=== PATIENT | male | born 1965 | race Caucasian/White ===

== ENCOUNTER 2019-04-26 08:18 | Day surgery (SDC) | payer BC ==
[2019-04-26] MEDS: SOD CHLORIDE 0.9% 1,000 ML IV (09:04)
[2019-04-26 09:05] LABS: ADD MAN DIFF? NO
[2019-04-26 09:11] LABS: BASOPHIL # 0.1 10^3/ul (0.0-0.1); BASOPHILS % 1.7 % (0.0-2.0); EOSINOPHILS # 0.2 10^3/ul (0.0-0.5); EOSINOPHILS % 3.8 % (0.0-7.0); HEMATOCRIT 43.3 % (42.0-52.0); HEMOGLOBIN 14.6 g/dl (14.0-18.0); LYMPHOCYTES # 1.2 10^3/ul (0.8-2.9); LYMPHOCYTES % 28.1 % (15.0-51.0); MEAN CORPUSCULAR HEMOGLOBIN 29.9 pg (29.0-33.0); MEAN CORPUSCULAR HGB CONC 33.7 g/dl (32.0-37.0); MEAN CORPUSCULAR VOLUME 88.5 fl (82.0-101.0); MEAN PLATELET VOLUME 8.8 fl (7.4-10.4); MONOCYTE # 0.4 10^3/ul (0.3-0.9); NEUTROPHIL # 2.4 10^3/ul (1.6-7.5); NEUTROPHILS % 56.2 % (39.0-77.0); PLATELET COUNT 257 10^3/UL (140-415); RED BLOOD COUNT 4.89 10^6/ul (4.70-6.10)
[2019-04-26 09:11] LABS: WHITE BLOOD COUNT 4.2 10^3/ul (4.8-10.8)
[2019-04-26 09:23] LABS: HOLD TRANSMISSIONS 1
[2019-04-26 09:29] LABS: INR 0.88; PT RATIO 0.9
[2019-04-26 09:46] LABS: ALANINE AMINOTRANSFERASE 40 IU/L (13-69); ALBUMIN 4.5 g/dl (3.3-4.9); ALBUMIN/GLOBULIN RATIO 1.55; ALKALINE PHOSPHATASE 74 IU/L (42-121); ANION GAP 8 (5-13); ASPARTATE AMINO TRANSFERASE 28 IU/L (15-46); BILIRUBIN,INDIRECT 0.8 mg/dl (0-1.1); BILIRUBIN,TOTAL 0.8 mg/dl (0.2-1.3); BLOOD UREA NITROGEN 11 mg/dl (7-20); CALCIUM 9.3 mg/dl (8.4-10.2); CARBON DIOXIDE 31 mmol/L (21-31); CHLORIDE 105 mmol/L (97-110); CREATININE 0.91 mg/dl (0.61-1.24); Estimated GFR > 60 mL/min (>60); GLUCOSE 91 mg/dl (70-220); POTASSIUM 3.9 mmol/L (3.5-5.1); SODIUM 144 mmol/L (135-144); TOTAL PROTEIN 7.4 g/dl (6.1-8.1)
[2019-04-26] MEDS ORDERED: FENTAnyl 50 MCG/ML VIAL (10:02)
[2019-04-26] MEDS ORDERED: ONDANSETRON 4 MG INJ (10:02)
[2019-04-26] MEDS ORDERED: MIDAZOLAM 1 MG/ML 2 ML INJ (10:02)
[2019-04-26] MEDS ORDERED: KETOROLAC 30 MG INJ (10:11)
[2019-04-26] MEDS: BUPIVACAINE 0.5% (SDV) 30 ML INJ INJ (10:15)
[2019-04-26] MEDS: LIDOCAINE 2% (MDV) 20 ML INJ INJ (10:15)
[2019-04-26] MEDS ORDERED: hydrALAzine 20 MG INJ IV ×2 (10:30)
[2019-04-26] MEDS ORDERED: MEPERIDINE 25 MG INJ IV ×2 (10:30)
[2019-04-26] MEDS ORDERED: DIPHENHYDRAMINE 50 MG INJ IV ×2 (10:30)
[2019-04-26] MEDS ORDERED: HYDROmorphONE 1 MG/5 ML IV SYRINGE IV ×6 (10:30)
[2019-04-26] MEDS ORDERED: HYDROCODONE/APAP (5/325) TAB PO (10:30)
[2019-04-26] MEDS ORDERED: LABETALOL HCL 20MG INJ IV ×2 (10:30)
[2019-04-26] MEDS ORDERED: FENTAnyl 50 MCG/ML VIAL IV ×6 (10:30)
[2019-04-26] MEDS ORDERED: ALBUTEROL 0.083% (NEB) 2.5 MG/3 ML AMP HHN ×2 (10:30)
[2019-04-26] MEDS ORDERED: OXYCODONE/ACETAMINOPHEN (5/325) TAB PO ×4 (10:30)
[2019-04-26] MEDS ORDERED: IPRATROPIUM (NEB) 0.5 MG/2.5 ML AMP HHN ×2 (10:30)
[2019-04-26] MEDS ORDERED: EPHEDrine 25 MG/5 ML SYG IV ×2 (10:30)
[2019-04-26] MEDS ORDERED: TRIMETHOBENZAMIDE 100 MG/ML VIAL IM ×2 (10:30)
[2019-04-26] MEDS ORDERED: MIDAZOLAM 1 MG/ML 2 ML INJ IV ×2 (10:30)
[2019-04-26] MEDS ORDERED: ONDANSETRON 4 MG INJ IV ×2 (10:30)
[2019-04-26] MEDS ORDERED: CEFAZOLIN 2 GM/50 ML (PMX) 50 ML IVPB (11:00)
[2019-04-26] MEDS ORDERED: CEFAZOLIN 1 GM/50 ML (PMX) 50 ML IVPB (11:00)
== END 2019-04-26 11:50 | disposition home or self-care (01) ==
LOC: SDS 08:18
DX: L72.0 Epidermal cyst (principal); I10 Essential (primary) hypertension
CPT/HCPCS: 14000; 71045; 80053; 85025; 85610; 85730; 88307; 93005